=== PATIENT | female | born 1955 | race Native Hawaiian/Other Pacific Islander ===

== ENCOUNTER 2017-01-07 10:39 | Outpatient (CLI) | payer OTHER ==
[~2017-01-07 10:39] MED LIST: CLOP75TA2 PO; METO50TA63 PO; OMEP40CA PO; SIMV40TA57 PO
== END 2017-01-07 10:54 | disposition short-term general hospital (02) ==
LOC: AMB 10:39
DX: R42 Dizziness and giddiness (principal); R11.2 Nausea with vomiting, unspecified; R53.81 Other malaise
CPT/HCPCS: A0425; A0427

== ENCOUNTER 2017-01-07 10:58 | Observation (INO) | payer OTHER ==
[~2017-01-07] VITALS: Ht 165.1 cm; Wt 60.4 kg
[2017-01-07 11:00] VITALS: BP 171/118; TEMP 97.6
[2017-01-07 11:22] LABS: PLATELET COUNT 181 K/uL (152-353)
[2017-01-07 11:32] LABS: POTASSIUM 3.4 mmol/L (3.6-5.2); SODIUM 140 mmol/L (136-145)
[2017-01-07 11:45] LABS: PARTIAL THROMBOPLASTIN TIME 21.2 SECONDS (24.5-33.6)
[2017-01-07 11:54] VITALS: BP 174/94
[2017-01-07 14:52] VITALS: BP 126/75; TEMP 98; Ht 165.1 cm; Wt 60.4 kg
[2017-01-07 16:00] VITALS: BP 141/81; TEMP 98.1
[2017-01-07 20:26] VITALS: BP 153/96; TEMP 98.1
[2017-01-08] VITALS: BP 116/74; TEMP 97.2
[2017-01-08 04:00] VITALS: BP 129/53; TEMP 96
[2017-01-08 04:25] LABS: PLATELET COUNT 149 K/uL (152-353)
[2017-01-08 04:32] LABS: POTASSIUM 3.6 mmol/L (3.6-5.2)
[2017-01-08 08:00] VITALS: BP 140/75; TEMP 97.8
[2017-01-08 12:00] VITALS: BP 139/73; TEMP 98.1
--- NOTE | 2017-01-08 14:51 | NUR ---
DC INSTRUCTIONS GIVEN TO PT AND . IV DCD WITH CANNULA INTACT AND SITE CARE PROVIDED. NAD NOTED. PT LEFT AMBULATORY REQUESTED.
== END 2017-01-08 14:55 | disposition home or self-care (01) ==
LOC: ED 10:58 → MED/SURG 12:10
PROVIDERS: Emergency Medicine
DX: R07.89 Other chest pain (principal); R55 Syncope and collapse; R11.2 Nausea with vomiting, unspecified; R42 Dizziness and giddiness; M32.8 Other forms of systemic lupus erythematosus
CPT/HCPCS: 36415; 80048; 80053; 81000; 82550; 83735; 84484; 85027; 85610; 85730; 93005; 94760; 96365; 96372; 96374; 99220; 99284; G0378; J1650; J2405; Q9963

== ENCOUNTER 2017-11-17 14:17 | Emergency (ER) | payer OTHER ==
[~2017-11-17] VITALS: Ht 165.1 cm; Wt 56.7 kg
[2017-11-17 14:33] VITALS: BP 175/92; TEMP 98.8
[2017-11-17 14:42] LABS: PLATELET COUNT 192 K/uL (152-353)
[2017-11-17 14:50] LABS: POTASSIUM 3.6 mmol/L (3.6-5.2)
== END 2017-11-17 16:30 | disposition short-term general hospital (02) ==
LOC: ED 14:17
PROVIDERS: Emergency Medicine
DX: I63.9 Cerebral infarction, unspecified (principal); I69.354 Hemiplegia and hemiparesis following cerebral infarction affecting left non-dominant side
CPT/HCPCS: 36415; 80053; 80320; 80329; 85027; 92977; 93005; 96365; 96375; 99285; J2997

== ENCOUNTER 2019-02-18 13:21 | Outpatient (CLI) | payer OTHER | END 2019-02-18 22:50 | disposition home or self-care (01) | LOC: CT 13:21 | DX: G44.89 Other headache syndrome (principal) ==

== ENCOUNTER 2019-08-08 10:58 | Outpatient (CLI) | payer OTHER | END 2019-08-08 19:36 | disposition home or self-care (01) | LOC: RAD 10:58 | DX: S99.821A Other specified injuries of right foot, initial encounter (principal) ==

== ENCOUNTER 2020-05-19 16:25 | Outpatient (CLI) | payer OTHER ==
[2020-05-19 17:04] LABS: PLATELET COUNT 191 K/uL (152-353)
[2020-05-19 17:10] LABS: POTASSIUM 3.9 mmol/L (3.6-5.2)
== END 2020-05-19 19:06 | disposition home or self-care (01) ==
LOC: RAD 16:25
PROVIDERS: Nurse Practitioner Family
DX: R60.0 Localized edema (principal); R53.83 Other fatigue; R06.02 Shortness of breath
CPT/HCPCS: 36415; 80053; 83880; 85027

== ENCOUNTER 2020-06-22 11:07 | Outpatient (CLI) | payer OTHER | END 2020-06-22 23:17 | disposition home or self-care (01) | LOC: RAD 11:07 | PROVIDERS: ATTEND Nurse Practitioner Family | DX: M53.3 Sacrococcygeal disorders, not elsewhere classified (principal); M25.551 Pain in right hip ==

== ENCOUNTER 2020-10-27 15:34 | Observation (INO) | payer OTHER ==
[~2020-10-27] VITALS: Ht 165.1 cm; Wt 65.5 kg
[2020-10-27 19:38] LABS: PLATELET COUNT 190 K/uL (152-353)
[2020-10-27 19:57] LABS: POTASSIUM 3.6 mmol/L (3.6-5.2)
[2020-10-27 19:59] VITALS: BP 165/90; TEMP 98.3
--- NOTE | 2020-10-27 22:08 | NUR ---
DR. HUSSEIN NOTIFIED OF PT ALLERGY TO ANCEF WITH ADVERSE REACTION BEING ITCHING BEGINNING AT THE BOTTOM OF THE FEET AND PROGRESSING UP THE BODY. PHYSICIAN INSTRUCTED TO GIVE A TRIAL DOSE OF ROCEPHINE 1G AND NOTIFY PHYSICIAN OF ADVERSE REACTIONS. ALSO RECIEVED ORDERS FOR BENADRYL FOR POSSIBLE ADVERSE REACTIONS, PLACE PT ON TELEMETRY AND CONTINUOUS PULSE OXIMETRY, AND TO RESUME HOME MEDICATIONS, ORDERS NOTED AND CARRIED OUT.
[2020-10-27 22:30] VITALS: BP 165/90; TEMP 98.3; Ht 165.1 cm; Wt 65.5 kg
[2020-10-27 23:53] VITALS: BP 151/97; TEMP 98
--- NOTE | 2020-10-28 00:05 | NUR ---
DR. HUSSEIN NOTIFIED AT THIS TIME OF PT'S BP OF 151/97. PHYSICIAN GAVE AN ORDER FOR A ONE TIME DOSE OF METOPROLOL 50 MG PO AT THIS TIME. NOTED AND CARRIED OUT. WILL MONITOR AND REASSESS FOR THERAPEUTIC RESPONSE.
--- NOTE | 2020-10-28 00:08 | NUR ---
REVIEWED PATIENT'S HOME MEDICATIONS AGAIN WITH PATIENT. PATIENT DENIES POTASSIUM CHLORIDE HOME MEDICATION AND SAME D/C'D AT THIS TIME.
--- NOTE | 2020-10-28 01:30 | NUR ---
PT. EDUCATED ON SMOKING CESSATION AT THIS TIME. PT WAS ALSO EDUCATED ON INCENTIVE SPIROMETER USAGE AT THIS TIME. PT VERBALIZED UNDERSTANDING AND USED THE INCENTIVE SPIROMETER WHILE IN NURSING STAFF AT BEDSIDE. PT GOT UP TO 2000 SPIROMETER VOLUME.
--- NOTE | 2020-10-28 04:00 | NUR ---
PT'S BP IS 139/78 AFTER MEDICATION ADMINISTRATION.
[2020-10-28 04:05] VITALS: BP 139/78; TEMP 98.4
[2020-10-28 08:00] VITALS: BP 144/77; TEMP 97.6
[2020-10-28 09:17] LABS: PLATELET COUNT 174 K/uL (152-353)
[2020-10-28 09:47] LABS: POTASSIUM 3.4 mmol/L (3.6-5.2)
--- NOTE | 2020-10-28 10:30 | NUR ---
BRANDON FROM PHARMACY CALLED TO CLARIFY THAT THE PT CAN HAVE ROCEPHIN WITH AN ANCEF ALLERGY. IN MORNING REPORT IT WAS REPORTED THAT THE PT RECIEVED ROCEPHIN LAST NIGHT AND NO REACTION WAS NOTED. BRANDON STATED TO INFORM NIGHTSHIFT TO OBSERVE PT CAREFULLY FOR ANY S/S OF ALLERGIC REACTION DURING ROCEPHIN ADMINISTRATION. BUILDING REPAIR MAINTENANCE SUPERVISOR WILL INFORM NIGHTSHIFT TONIGHT.
--- NOTE | 2020-10-28 11:00 | NUR ---
INFORMED DR. HUSSEIN OF PT'S AM LABS, DR. HUSSEIN ORDERS FOR ELECTROLYTE PROTOCOL TO REPLACE POTASSIUM, NO FURTHER ORDERS AT THIS TIME
[2020-10-28 12:00] VITALS: BP 147/70
--- NOTE | 2020-10-28 13:00 | NUR ---
PT COMPLAINED OF ACID REFLUX. DR. HUSSEIN WAS NOTIFIED AND ORDERED A GI COCKTAIL. GI COCKTAIL HAS BEEN ADMINISTERED. NO OTHER ORDERS AT THIS TIME.
--- NOTE | 2020-10-28 14:48 | NUR ---
PT REQUESTED TO TAKE A SHOWER. PT WAS GIVEN SHOWER SUPPLIES AND TOWELS. A TOWEL WAS PLACED ON THE FLOOR IN FRONT OF THE SHOWER TO PREVENT SLIPPING. TELEMETRY AND O2 HAVE BEEN TEMPORARILY TAKEN OFF AT THIS TIME. PT WAS INSTRUCTED TO CALL REPORT SPECIALIST WHEN FINISHED TAKING A SHOWER TO BE RECONNECTED TO TELEMETRY.
--- NOTE | 2020-10-28 15:45 | NUR ---
RT IS IN WITH PT GIVING ALBUTEROL TREATMENT. RN SANE WENT IN TO REAPPLY TELEMETRY AND CONTINUOUS PULSE OX. RT STATED THAT PT AFTER GETTING OUT OF THE SHOWER HAD AN O2 SATURATION OF 94% ON ROOM AIR. AFTER ALBUTERAL TREATMENT, PT HAD AN O2 SATURATION OF 98% ON ROOM AIR. NAD IS NOTED AT THIS TIME.
[2020-10-28 16:00] VITALS: BP 130/85; TEMP 98.8
[2020-10-28 20:04] VITALS: BP 139/85; TEMP 97.9
[2020-10-29] VITALS: BP 134/72; TEMP 98.2
[2020-10-29 04:00] VITALS: BP 136/76; TEMP 98
[2020-10-29 04:59] LABS: PLATELET COUNT 171 K/uL (152-353)
[2020-10-29 05:19] LABS: POTASSIUM 4.6 mmol/L (3.6-5.2)
[2020-10-29 08:00] VITALS: BP 148/90; TEMP 98.2
--- NOTE | 2020-10-29 11:15 | NUR ---
EDUCATED PT ON DISCHARGE INSTRUCTIONS, PT VERBALIZED UNDERSTANDING. IV WAS REMOVED WITHOUT DIFFICULTY WITH CATHETER INTACT. PT WALKED OUT OF THE BUILDING WITH SPOUSE BY HER SIDE CARRYING PERSONAL BELONGINGS. PT ENTERED PERSONAL VEHICLE TO GO HOME FOR SELF CARE.
== END 2020-10-29 11:21 | disposition home or self-care (01) ==
LOC: MED/SURG 15:34
PROVIDERS: ADMIT Family Medicine; ATTEND Family Medicine
DX: J12.81 Pneumonia due to SARS-associated coronavirus (principal); Z86.16 Personal history of COVID-19; R05 Cough; F17.200 Nicotine dependence, unspecified, uncomplicated; J44.1 Chronic obstructive pulmonary disease with (acute) exacerbation; R00.0 Tachycardia, unspecified; R09.02 Hypoxemia; R06.09 Other forms of dyspnea; I10 Essential (primary) hypertension; F41.9 Anxiety disorder, unspecified
CPT/HCPCS: 36415; 80053; 82728; 83735; 84100; 84443; 85027; 85379; 86140; 87040; 87070; 87077; 87185; 87205; 87635; 93005; 94640; 94664; 94667; 94668; 94760; 96365; 96367; 99220; G0378; G0379; J0456; J0696; J2930; U0003

== ENCOUNTER 2021-03-19 11:58 | Outpatient (CLI) | payer OTHER | END 2021-03-19 23:12 | disposition home or self-care (01) | LOC: RAD 11:58 | PROVIDERS: ATTEND Nurse Practitioner Family | DX: J12.81 Pneumonia due to SARS-associated coronavirus (principal) ==

== ENCOUNTER 2022-10-17 12:00 | Outpatient (CLI) | payer OTHER ==
[2022-10-17 12:48] LABS: POTASSIUM 3.8 mmol/L (3.6-5.2)
== END 2022-10-17 19:05 | disposition home or self-care (01) ==
LOC: RAD 12:00
PROVIDERS: ATTEND Nurse Practitioner Family
DX: R10.13 Epigastric pain (principal)
CPT/HCPCS: 36415; 80053; 82550; 82553; 84484; 93005